=== PATIENT | male | born 1985 | race Caucasian/White ===

== ENCOUNTER → 2020-08-17 | Outpatient (CLI) | payer OTHER ==
[~2020-08-17] MED LIST: GABA300C18 PO; NAPR-514 PO
--- NOTE | 2020-08-17 15:37 | PDOC1 ---
INITIAL PAIN CONSULT DATE OF SERVICE: DOS: DATE: 08/17/20 TIME: 15:29 CHIEF COMPLAINT: Chief Complaint: Low back and bilateral lower extremity pain HISTORY OF PRESENT ILLNESS: 35-year-old male presents history of pain low back bilateral lower extremities left greater than right for many years approximately 15, worse over about the last 2 months increasing over the past few weeks without any specific injury or accident he is aware of. 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 Patient reports wakes him from sleep about every 7-10 times a night does not affect his bowel bladder control or ability to walk but has difficulty with work duties. Patient has had chiropractic treatment physical therapies and is currently doing exercise as well as seeing chiropractic consistently which he does feel helps but only temporarily. Patient is taking naproxen gabapentin hydrocodone all of which do decrease the pain but only by about 10 to 20%. Patient rates his disability rating 0-10 10 being the worst is a 7 with family home responsibilities 9 with recreation social activity 5 with occupation section behavior 6 with self-care and life support activities. Did have a MRI scan lumbar spine showing multilevel degenerative changes and disc bulges moderately large right subarticular disc protrusion lower thoracic spine T11-T12 with a broad-based right central disc extrusion at T11-12 L1 mild left central disc protrusion at L1-L2 concurrent broad-based right central disc protrusion and extrusion at L2-3 central disc protrusion extrusion at L3-4 and concurrent broad-based right central disc extrusion at L4-5. Reports no loss of motor function but significant fatigability with the lower extremities with use. PAST MEDICAL HISTORY: PMH: Arthritis history, eczema, cigarette smoking, tinnitus PREVIOUS SURGERIES: Past Surgical Hx: [place] teeth extraction CURRENT MEDICATIONS: Current Meds: See patient's med sheet ALLERGIES; Allergies: Coded Allergies: No Known Drug Allergies (Unverified , 08/17/20) FAMILY HISTORY: Family Hx: No major medical problems or conditions that he is aware of. SOCIAL HISTORY: Social Hx: Patient has 1-2 alcoholic drinks 2-3 times a week, smokes less than a pack a day for the past 15 years continues to smoke cigarettes. Patient is not use any illegal illicit recreational drugs is single but engaged lives with his fianc and 3 children, and lives locally in [facility], patient works as a med admin. REVIEW OF SYSTEMS: ROS: Positive for those items mentioned in history of present illness, all systems are reviewed, otherwise negative, is complete full and well-documented on patient's chart PHYSICAL EXAM: VS: Blood pressure is 137/96 pulse 83 respirations 16 temperature 97.9 F height is 5 feet 7 inches weight is 207 pounds PE: PHYSICAL EXAMINATION: GENERAL: The patient is awake, alert, oriented, appropriate, very pleasant demeanor HEENT: Shows normocephalic, atraumatic. Extraocular movements are intact and symmetrical. Oral cavity: Mucous membranes moist and pink. Dentition is intact. NECK: Shows anterior throat supple without palpable lymphadenopathy noted. Swallow reflex symmetrical. CHEST: Shows normal on inspection. Breath sounds are clear bilaterally, no rales rhonchi wheezes auscultated. HEART: Shows S1, S2 clear. No murmurs auscultated. ABDOMEN: Soft, nontender, nondistended, obese. No palpable organomegaly is noted. No rebound or guarding demonstrated. BACK: Shows spine grossly in the midline. Normal-appearing cervical lordotic curvature. There is slightly increased thoracic kyphosis, some minor flattening of the lumbar lordotic curvature. Lumbar paraspinous muscles show symmetrical on inspection, on palpation shows some moderate tenderness diffusely throughout the upper, middle and lower distribution of the paraspinous muscles bilaterally and also into the lower thoracic paraspinous musculature, firm and tender, but without specific trigger points, without radiation of pain. The patient has good rotational motion of the lumbar spine, both laterally as well as extension and flexion without significant difficulty. No tenderness over the spinous processes, sacrum or sacroiliac regions. EXTREMITIES: Lower extremities show deep tendon reflexes 2+ in the patellar and tendo calcaneus tendons. Motor exam is 5 on a scale of 5 with right dorsi flexion, extension, quadriceps and hamstring flexion and 5/5 on the left. Peripheral pulses are 1+ posterior tibial. No peripheral edema is noted bilaterally. Lower extremities are warm and dry to touch, equal in color and appearance. Straight leg raise noted to be negative on the right, left side is mildly positive at about 45 degrees decreased with knee flexion. Gaenslen's and Benny's maneuvers are negative bilaterally. The patient is able to stand, stand on his toes without significant difficulty or balance loss, walks with a normal-appearing gait does not appear to favor the right or left lower extremity significantly is not use any assistive device such as canes or walkers to ambulate.. SKIN: Shows warm and dry, good turgor. No edema. No sores, rashes or bruising throughout. IMPRESSION: Impression: 35-year-old male with long history of low back pain worse over the past 2 months with radicular pain left greater than right lower extremity in an L4-5 dermatomal distribution MRI scan lumbar spine as noted Arthritis Cigarette smoking Plan: Options were discussed with the patient including conservative medical management continued physical therapies and chiropractic treatment as well as interventional techniques. Patient would like to pursue interventional techniques as he is doing exercises daily taking anti-inflammatories and muscle relaxers as well as chiropractic treatments. We discussed a lumbar epidural steroid injection using description as well as anatomical model to describe procedure. Patient will wait for preauthorization with his insurance provider once this is obtained we will plan him to return and we will plan on L4-5 translaminar lumbar epidural steroid injection at that time. In the meantime patient will continue with exercises, patient is also given Medrol Dosepak with instructions side effects to be aware of. MOUNIKA CARVALHO MD Aug 17, 2020 15:37
== END | disposition home or self-care (01) ==
LOC: PNCL 13:10
PROVIDERS: ATTEND Anesthesiology
DX: M54.5 Low back pain (principal); M79.605 Pain in left leg; M79.604 Pain in right leg; M19.90 Unspecified osteoarthritis, unspecified site; Z87.891 Personal history of nicotine dependence; Z79.899 Other long term (current) drug therapy; Z98.890 Other specified postprocedural states
CPT/HCPCS: 99214; G0463

== ENCOUNTER → 2020-08-31 | Outpatient (CLI) | payer OTHER ==
[~2020-08-31] MED LIST changes: +IOHEXOL 180 MG/ML 10 ML VIAL. ONE; +methylPREDNISolone ACETATE 40 MG/ML VIAL. ONE; +methylPREDNISolone ACETATE 80 MG/ML VIAL. ONE
--- NOTE | 2020-08-31 14:08 | PDOC ---
Progress Note - Pain Clinic Date of Service: DOS: DATE: 08/31/20 TIME: 14:05 Diagnosis: Dx: Lumbar radiculopathy with lumbar degenerative disc disease History or Present Illness: HPI: 35-year-old male returns follow-up status post initial evaluation and preauthorization for lumbar epidural steroid injection. Patient reports still significant pain in the low back and bilateral lower extremities. Patient reports no new motor or sensory deficit still pain in the back left greater than right in the lower extremities with pain in the legs posterior lateral thighs and anterior thighs reports is aching and dull tight shooting at times in the legs worse with walking standing change positions bending stooping and crawling patient reports is a 6 on scale 10 is worse over the past week 3 on average to its least is a 3 today. Patient reports no new motor or sensory deficits continues awakening from sleep at night about every 7-8 hours. Patient reports no bowel or bladder incontinence no new deficits. Patient reports that the Medrol Dosepak that we given him had not been able to get it filled yet so he was unable to try it. Physical Exam: VS: Blood pressure is 120/87 pulse 90 respirations 16 temperature 98.7 F weight is 207 pounds PE: PHYSICAL EXAMINATION: GENERAL: The patient is awake, alert, oriented, appropriate, very pleasant demeanor HEENT: Shows normocephalic, atraumatic. Extraocular movements are intact and symmetrical. NECK: Shows anterior throat supple without palpable lymphadenopathy noted. Swallow reflex symmetrical. CHEST: Shows normal on inspection. Breath sounds are clear bilaterally. HEART: Shows S1, S2 clear. No murmurs auscultated. ABDOMEN: Soft, nontender, nondistended, obese. No palpable organomegaly is noted. No rebound or guarding demonstrated. BACK: Shows spine grossly in the midline. Normal-appearing cervical lordotic curvature. There is slightly increased thoracic kyphosis, some minor flattening of the lumbar lordotic curvature. Lumbar paraspinous muscles show symmetrical on inspection, on palpation shows some moderate tenderness diffusely throughout the upper, middle and lower distribution of the paraspinous muscles, but without specific trigger points, without radiation of pain. The patient has good rotational motion of the lumbar spine, both laterally as well as extension and flexion without significant difficulty. EXTREMITIES: Lower extremities show deep tendon reflexes 2+ in the patellar and tendo calcaneus tendons. Motor exam is 5 on a scale of 5 with right dorsiflexion, extension, quadriceps and hamstring flexion and 5/5 on the left. Peripheral pulses are 1+ posterior tibial. No peripheral edema is noted bilaterally. Lower extremities are warm and dry to touch, equal in color and appearance. SKIN: Shows warm and dry, good turgor. No edema. No sores, rashes or bruising throughout. Procedure: Procedure: Options were discussed with patient. Patient old chart was reviewed medication list updated as well as review of systems updated today. We will proceed with a first in the series lumbar epidural steroid injection with fluoroscopic guidance. Risks were discussed including but not limited to: Bleeding, infection, possibility of epidural hematoma and subsequent neurological compromise, dural puncture, headaches, spinal cord and/or nerve damage, side effects of steroid medication, and poor results regarding pain control. Patient understands and wished to proceed. Patient return to clinic in approximate 2 w eeks for follow-up, was counseled as to return appointment activity level, and side effects to be aware of. Medication Injected: Med Injected: Procedure is lumbar epidural steroid injection under local anesthetic using ster ile prep and drape at the L4-5 level using C-arm fluoroscopic guidance in both AP and lateral views medications injected is 120 mg Depo-Medrol + 10 mL preservative-free normal saline and 2 mL contrast- condition at discharge is stable patient tolerated procedure well had no complications. Condition at Discharge: Condition at Discharge: Condition at discharge stable, patient tolerated procedure well and had no complications. MOUNIKA CARVALHO MD Aug 31, 2020 14:08
--- NOTE | 2020-08-31 14:08 | PDOC4 ---
PROCEDURE Procedure Patient was consented for lumbar epidural steroid injection. Risks were dis cussed including but not limited to: Bleeding, infection, possibility of epidural hematoma and subsequent neurological compromise, dural puncture, headaches, spinal cord and/or nerve damage, side effects of steroid medication, and poor results regarding pain control. Patient understands and wished to proceed. Procedure is lumbar epidural steroid injection under local anesthetic using sterile prep and drape at the L4-5 level using C-arm fluoroscopic guidance in both AP and lateral views medications injected is 120 mg Depo-Medrol + 10 mL preservative-free normal saline and 2 mL contrast- condition at discharge is stable patient tolerated procedure well had no complications. MOUNIKA CARVALHO MD Aug 31, 2020 14:08
== END | disposition home or self-care (01) ==
LOC: PNCL 13:07
PROVIDERS: ATTEND Anesthesiology
DX: M51.16 Intervertebral disc disorders with radiculopathy, lumbar region (principal); Z98.890 Other specified postprocedural states
CPT/HCPCS: 62323; J1030; J1040; Q9965

== ENCOUNTER → 2020-09-22 | Outpatient (CLI) | payer OTHER ==
[~2020-09-22] MED LIST changes: -IOHEXOL 180 MG/ML 10 ML VIAL. ONE; -methylPREDNISolone ACETATE 40 MG/ML VIAL. ONE; -methylPREDNISolone ACETATE 80 MG/ML VIAL. ONE
--- NOTE | 2020-09-22 14:09 | PDOC ---
Progress Note - Pain Clinic Date of Service: DOS: DATE: 09/22/20 TIME: 14:03 Diagnosis: Dx: Lumbar radiculopathy with lumbar degenerative disc disease History or Present Illness: HPI: 35-year-old male returns follow-up status post lumbar epidural steroid action x1. Patient reports about 90% improvement initially with the pain reducing significantly for about the past 3-1/2 weeks. Patient reports pain is returning down the low back and the bilateral lower extremities mostly posterior gluteus posterior lateral thigh anterior medial thighs as well but much better than it was patient patient has been increasing activity with much greater ease and com fort and has been sleeping better at night's been doing better with working activities household activities and walking greater distances. Patient reports no new motor or sensory deficits no new bowel or bladder incontinence or other complaints is quite pleased with her progress thus far. Patient scribes pain is aching and dull in the back and the lower extremities itself still with some radicular component into the bilateral lower extremities but much decreased intensity. Patient rates his pain is a 4 on a scale 10 is worse over the past week 2 on average 0 its least is a 2 today. Physical Exam: VS: Blood pressure is 142/87 pulse 105 respirations 18 temp 98.8 F, height is 5 foot 6 inches weight is 203 pounds PE: PHYSICAL EXAMINATION: GENERAL: The patient is awake, alert, oriented, appropriate, very pleasant demeanor HEENT: Shows normocephalic, atraumatic. Extraocular movements are intact and symmetrical. NECK: Shows anterior throat supple without palpable lymphadenopathy noted. Swallow reflex symmetrical. CHEST: Shows normal on inspection. Breath sounds are clear bilaterally. HEART: Shows S1, S2 clear. No murmurs auscultated. ABDOMEN: Soft, nontender, nondistended, obese. No palpable organomegaly is noted. BACK: Shows spine grossly in the midline. Normal-appearing cervical lordotic curvature. There is increased thoracic kyphosis, some minor flattening of the lumbar lordotic curvature. Lumbar paraspinous muscles show symmetrical on inspection, on palpation shows some moderate tenderness diffusely throughout the upper, middle and lower distribution of the paraspinous muscles bilaterally without specific trigger points, without radiation of pain. The patient has good rotational motion of the lumbar spine, both laterally as well as extension and flexion without significant difficulty. No tenderness over the spinous pr ocesses, sacrum or sacroiliac regions. EXTREMITIES: Lower extremities show deep tendon reflexes 2+ in the patellar and tendo calcaneus tendons. Motor exam is 5 on a scale of 5 with right dorsiflexion, extension, quadriceps and hamstring flexion and 5/5 on the left. Peripheral pulses are 1+ posterior tibial. No peripheral edema is noted bilaterally. Lower extremities are warm and dry to touch, equal in color and appearance. SKIN: Shows warm and dry, good turgor. No edema. No sores, rashes or bruising throughout. Procedure: Procedure: Options were discussed with the patient. Patient's old chart reviews his current medication regimen updated current review of systems updated today as well. We will preauthorize patient for second lumbar epidural steroid injection she did very well after the first injection for many weeks but the pain returning now in a radicular fashion L4-5 dermatomal distribution the bilateral lower extremities. Patient continue with stretching strength exercises walking daily as tolerated analgesics orally as well as Flexeril. Patient asked for refill for his Flexeril we will refill that with Flexeril 10mg, tid. Patient is given instructions well side effects with the medication and will follow-up for second lumbar epidural steroid injection translaminar approach at the L4-5 level as scheduled. Medication Injected: Med Injected: None Condition at Discharge: Condition at Discharge: Condition at discharge is stable. MOUNIKA CARVALHO MD Sep 22, 2020 14:09
== END | disposition home or self-care (01) ==
LOC: PNCL 13:33
PROVIDERS: ATTEND Anesthesiology
DX: M51.16 Intervertebral disc disorders with radiculopathy, lumbar region (principal); Z79.899 Other long term (current) drug therapy
CPT/HCPCS: 99212; G0463